=== PATIENT | male | born 1950 | race Hispanic/Latino ===

== ENCOUNTER 2025-05-04 16:48 | Emergency (ER) | payer MEDICARE, SELFPAY ==
[2025-05-04 16:56] VITALS: BP 163/94
[2025-05-04 17:22] LABS: % Basophils 0.6 % (0-2); % Eosinophils 8.5 % (0-6); % Immature Granulocytes 0.3 % (0-0.5); % Lymphocytes 33.2 % (20.5-51.1); % Monocytes 9.4 % (1.7-9.3); Absolute Eosinophils 0.6 10^3/uL (0-0.7); Absolute Lymphocytes 2.4 10^3/uL (1.2-3.4); Absolute Monocytes 0.7 10^3/uL (0.1-0.6); Absolute Neutrophils 3.4 10^3/uL (1.4-6.5); Hematocrit 40.1 % (39.0-52.0); Hemoglobin 13.9 g/dL (13.0-18.0); Mean Corp Hgb Conc. 34.7 g/dL (33.0-37.0); Mean Corpuscular Volume 89.3 fL (80.0-94.0); Mean Platelet Volume 9.5 fL (7.4-10.4); Nucleated Red Blood Cells % 0 % (-); Platelet Count 247 10^3/uL (130-400); Red Blood Cell Count 4.49 10^6/uL (4.70-6.10); White Blood Cell Count 7.2 10^3/uL (4.8-10.8)
[2025-05-04 17:33] LABS: INR 1.11; PT 14.6 Sec (11.4-14.6)
[2025-05-04 17:52] LABS: ALT (SGPT) 20 U/L (0-50); AST (SGOT) 28 U/L (17-59); Albumin 4.3 g/dl (3.5-5.0); Alkaline Phosphatase 81 U/L (38-126); Blood Urea Nitrogen 19 mg/dl (9-20); Calcium 8.8 mg/dl (8.4-10.2); Carbon Dioxide 25 mmol/L (22-30); Chloride 107 mmol/L (98-107); Glucose 101 mg/dl (70-99); Potassium 4.3 mmol/L (3.5-5.1); Sodium 138 mmol/L (135-145); Total Bilirubin 0.7 mg/dl (0.2-1.3); Total Protein 7.5 g/dl (6.3-8.2); eGFR > 60.00
[2025-05-04 18:05] LABS: Troponin I < 0.012 ng/ml
[2025-05-04 18:21] VITALS: BP 150/94
[2025-05-04 19:00] VITALS: BP 152/91
--- NOTE | 2025-05-04 19:41 | ED.GENMED ---
History of Present Illness
General
Chief Complaint: Dizziness
Source: patient
Exam Limitations: none
Time Seen by Provider: 05/04/25 19:35
History of Present Illness
History of Present Illness:
See MDM
Past History
Past History
ED Past Medical History: CVA
ED Past Surgical History: None
Social History
Tobacco: Non-smoker
Employment: Employed
Phy Exam
Physical Exam
Physical Exam:
See MDM
Course
Orders/Labs/Results
Orders:
Orders
05/04/25 16:58
EKG [Electrocardiogram (*1)] Urgent
Reason for Study: Vertigo / Dizzy
EKG- Treatment ONCE
05/04/25 17:03
CT Head W/o Iv Contrast Urgent
Comment:
Reason For Exam: dizziness since yesterday, CVA history
05/04/25 17:16
Complete Blood Count/With Diff Urgent
Comprehensive Metabolic Panel Urgent
Prothrombin Time Urgent
Troponin I Urgent
Abnormal Lab Results
05/04/25
17:16
RBC 4.49 L 10^6/uL
(4.70-6.10)
Absolute Monos (auto) 0.7 H 10^3/uL
(0.1-0.6)
Monocytes % 9.4 H %
(1.7-9.3)
Eosinophils % 8.5 H %
(0-6)
Glucose 101 H mg/dl
(70-99)
05/04/25 17:16
05/04/25 17:16
Vital Signs
Initial and Last Documented VS:
Initial Vital Signs
Temp Pulse Resp BP Pulse Ox
98.3 F 56 18 163/94 100
05/04/25 16:56 05/04/25 16:56 05/04/25 16:56 05/04/25 16:56 05/04/25 16:56
Last Documented Vital Signs
Temp Pulse Resp BP Pulse Ox
98.3 F 58 15 152/91 100
05/04/25 16:56 05/04/25 19:00 05/04/25 19:00 05/04/25 19:00 05/04/25 19:00
MDM/Problems Addressed
Differential Diagnosis Includes:
HPI and MDM Narrative:
75-year-old male presenting for evaluation of intermittent dizziness. Over the past few days, patient had dizziness when he woke up and got out of bed. This occurred only in the morning. Patient has been symptom-free for the remainder of the day.
Since it happened for the second time this morning, his family brought him to urgent care for evaluation. Family member indicate he wanted to make sure he did not have another stroke. Due to his symptoms and EKG showing right bundle branch block,
he is sent to the emergency department. Blood work without clinical relevant abnormalities. CT head negative. EKG nonischemic. No arrhythmia noted.
On exam, he does have a narrow right TM. He states this is an abnormality that occurred after an accident when he was a child.
Given that symptoms only occurred over the morning, I do doubt stroke. He denies vertiginous symptoms., He is well-appearing and nontoxic. He is currently symptom-free. Symptomatic when I sit him up quickly. He has normal finger-nose
bilaterally. Heart regular rate and rhythm. We discussed the negative work and patient and family member feel comfortable being discharged the importance of PCP follow-up. He apparently does not have a PCP so I provided clinic information
Physical exam
General: Well appearing and non-toxic
HEENT: protecting airway. Right TM narrow
Neck: appears supple
CV: No evidence of cyanosis. Regular rate and rhythm
Resp: No accessory muscle use
Abd: Non-distended
Extremities: No deformities
Neuro: alert. Normal finger-nose bilaterally. No focal neurodeficits
Psych: Normal affect
Skin: Intact
Problems Addressed including Acute and Chronic Conditions affecting care:
1. Dizziness
Acuity: acute
Prognosis: stable
Details: Blood work and CT head negative. EKG nonischemic. Discussed further workup in the outpatient setting.
Differential Diagnosis (but not limited to): TIA, vertigo, dehydration
Testing considered: CTA
Drug therapy (if applicable): OTC meds, please see d/c instruction regarding Rx drugs
Amount and/or Complexity of Data Reviewed
Clinical info obtained from: Patient
External data reviewed: N/A
Labs I independently reviewed (but not limited to): Troponin
Radiology: The CT scan was personally and independently reviewed. In addition, official CT report reviewed.
Pulse Ox: not hypoxic
EKG independently reviewed: Sinus rhythm, normal axis, right bundle branch block
Material Requirements Planning Manager: N/A
Critical Care: N/A
Risk of Complication:
Social Determinants of health: Good social support
Discussed with other providers: N/A
Escalation of Care includes Admit/Obs: After being observed in the Emergency Department, pt stable for discharge.
Occasional wrong word or 'sound a like' substitutions may have occurred due to the inherent limitations of voice recognition software. Read the chart carefully and recognize, using context, where substitutions have occurred.
*Critical Care Note
Total Time (30-74mins, 75-104mins- exclusive of procedures): Not Applicable
ED Attending Note
-
Portions of this chart may have been created with voice recognition software.� Occasional wrong word or��sound alike� substitutions may have occurred due to the inherent limitations of voice recognition software.
Discharge Plan
Departure
Patient Disposition: Home (Routine Discharge)
Date of Disposition: 05/04/25
Time of Disposition: 19:45
Patient with high blood pressure during this ER visit?: Yes
Discharge Problem:
Dizziness
Instructions: Dizziness, BLOOD PRESSURE
Referrals:
[facility] [Provider Group]
Activity Restrictions/Additional Instructions:
Please return for any worsening symptoms.
You may return at any time if you have further concerns.
Please follow up with family [facility] at the first available appointment, preferably this week.
Thank you for choosing [facility].
Interventions
Interventions:
*Risk Screen - Suicide Last Done: 05/04/25 17:02
*General Assessment Last Done: 05/04/25 17:02
*Neglect/Abuse Screening Last Done: 05/04/25 17:02
*ED COVID-19 Vaccine History Last Done: 05/04/25 17:02
Discharge Date and Time
Print Language: BAHAMIAN
[2025-05-04 19:47] VITALS: BP 156/99
== END 2025-05-04 19:55 | disposition home or self-care (01) ==
LOC: EMR 16:48
PROVIDERS: Emergency Medicine; EMERGENCY PHYSICIAN Student in an Organized Health Care Education/Training Program
DX: R42 Dizziness and giddiness (principal); R03.0 Elevated blood-pressure reading, without diagnosis of hypertension; I45.10 Unspecified right bundle-branch block; Z86.73 Personal history of transient ischemic attack (TIA), and cerebral infarction without residual deficits
CPT/HCPCS: 99284; 70450; 80053; 84484; 85025; 85610; 93005